=== PATIENT | female | born 1995 | race American Indian/Alaskan Native ===

== ENCOUNTER 2017-09-29 10:27 | Emergency (ER) | payer MEDICAID ==
--- NOTE | 2017-09-29 13:01 | Emergency Department Report ---
ED Abdominal Pain HPI - General Chief Complaint: Abdominal Pain Stated Complaint: PREG W/BACK PAIN Time Seen by Provider: 09/29/17 12:23 Source: EMS Mode of arrival: Stretcher Limitations: No Limitations - History of Present Illness Initial Comments: Patient here from [place] patient is on 1013 from [place] for schizophrenia, family states she is about 20 weeks with lower abdominal pain patient is refusing to answer questions. Awake alert responsive but uncooperative with exam and history, no fever, no n/v, no vag bleed or d/c per family, no fever no back pain, no cp no sob Severity scale (0 -10): 4 - Related Data Allergies Allergy/AdvReac Type Severity Reaction Status Date / Time risperidone [From Risperdal] AdvReac Itching Verified 09/29/17 12:42 ED Review of Systems ROS: Stated complaint: PREG W/BACK PAIN Other details as noted in HPI Comment: uncooperative/ flat afftect/psychosis ED Past Medical Hx - Past Medical History Previous Medical History?: Yes Hx Psychiatric Treatment: Yes ED Physical Exam - General Limitations: No Limitations General appearance: alert, in no apparent distress - Head Head exam: Present: atraumatic, normocephalic - Eye Eye exam: Present: PERRL, EOMI - ENT ENT exam: Present: normal exam - Neck Neck exam: Present: normal inspection. Absent: tenderness, meningismus - Respiratory Respiratory exam: Present: normal lung sounds bilaterally. Absent: respiratory distress, wheezes, rales, rhonchi, stridor, chest wall tenderness, accessory muscle use, decreased breath sounds, prolonged expiratory - Cardiovascular Cardiovascular Exam: Present: regular rate, normal rhythm, normal heart sounds - GI/Abdominal GI/Abdominal exam: Present: soft. Absent: distended, tenderness, guarding, rebound, rigid, hyperactive bowel sounds, mass, pulsatile mass - External exam: Present: normal external exam, other (yellow vag d/c on underewear, refuses pelvic exam) - Back Exam Back exam: Present: normal inspection. Absent: tenderness, CVA tenderness (R), CVA tenderness (L), muscle spasm, paraspinal tenderness, vertebral tenderness - Neurological Exam Neurological exam: Present: alert, CN II-XII intact. Absent: motor sensory deficit - Psychiatric Psychiatric exam: Present: flat affect - Skin Skin exam: Present: warm. Absent: cyanosis, diaphoretic, erythema, urticaria, vesicles, petechiae ED Course Vital Signs 09/29/17 09/29/17 09/29/17 11:50 11:54 12:23 Temperature 98.2 F Pulse Rate 112 H Respiratory 18 18 18 Rate Blood Pressure 107/71 [Left] O2 Sat by Pulse 100 100 100 Oximetry 09/29/17 18:12 Temperature 98 F Pulse Rate 93 H Respiratory 16 Rate Blood Pressure 133/73 [Left] O2 Sat by Pulse 100 Oximetry - Reevaluation(s) Reevaluation #1: 09/29/17 19:14 Patient is now admitting to having a boyfriend states sexually active with one partner [place]'s nurse states patient has not had any care they took once to [facility] where they diagnosed she has not since followed up, unknown lnmp, here w/ lower abd pain, about 20 wks after one time hcg + at [place], no care, on 1013 for schizophrenia from [facility] 09/29/17 19:47 ED Medical Decision Making - Lab Data Result diagrams: 09/29/17 12:40 09/29/17 12:40 - Medical Decision Making u/s shows 19 wk ega , nl iup, breech presentaiotn, no other comments per rad, pt unable to produce u/a x 2 and cath specimen no urine in bladder, +mild yellowish vag d/c ,case d/w dr valencia of ob to arrange care who states send for outpt f/u appt at their practice, advises no need for pelvic now if now acute abd and no vag bleed, pt was uncooperative for pelvic and may need sedated exam under anesthesia for more formal exam for pnc per ob, will treat for trich at this time given nature of d/c and odor since frothy d/c and clinically worrisome for trich in preg pt. will need fornamal pelvic and labs per ob in [id number], [facility] will be made aware to schedule appt, to have pt return if fever worse sx, new or alarming sx or worse pain. Critical care attestation.: If time is entered above; I have spent that time in minutes in the direct care of this critically ill patient, excluding procedure time. ED Disposition Clinical Impression: Normal IUP (intrauterine ) on ultrasound, Hx of schizophrenia , Abdominal pain Disposition: [id number] PSY HOSP/PSY UNIT Is pt being admited?: No Condition: Stable Instructions: Abdominal Pain (ED) Referrals: PRIMARY CARE, [Primary Care Provider] - 3-5 Days Time of Disposition: 19:53
[2017-09-29 13:27] LABS: Basophils % (Auto) 0.1 % (0.0-1.8); Eosinophils % (Auto) 0.3 % (0.0-4.3); Hematocrit 35.8 % (30.3-42.9); Hemoglobin 11.8 gm/dl (10.1-14.3); Lymphocytes # (Auto) 1.5 K/mm3 (1.2-5.4); Lymphocytes % (Auto) 13.3 % (13.4-35.0); Mean Corpuscular HGB Conc 33 % (30-34); Mean Corpuscular Hemoglobin 27 pg (28-32); Mean Corpuscular Volume 82 fl (79-97); Monocytes % (Auto) 8.9 % (0.0-7.3); Platelet Count 218 K/mm3 (140-440); Red Blood Count 4.38 M/mm3 (3.65-5.03); Red Cell Distribution Width 13.8 % (13.2-15.2)
[2017-09-29 13:45] LABS: Alanine Aminotransferase 52 units/L (7-56); Albumin 3.7 g/dL (3.9-5); BUN/Creatinine Ratio 16; Blood Urea Nitrogen 8 mg/dL (7-17); Calcium 9.1 mg/dL (8.4-10.2); Hemolysis Index 0
--- NOTE | 2017-09-29 15:37 | Ultrasound Report ---
FINAL REPORT PROCEDURE: US OB > = 14 WEEKS FETUS TECHNIQUE: Real-time transabdominal sonography of the uterus, placenta, amniotic fluid, adnexa, and fetus was performed with image documentation. Detailed anatomic examination was performed. Measurements were obtained to determine age/size. M-mode Doppler was used to document heartbeat. CPT 46512 HISTORY: pain COMPARISON: No prior studies are available for comparison. FINDINGS: There is a single living intrauterine gestation currently visualized in the breech presentation with a heart rate of 148 beats per minute. Subjectively the amount of amniotic fluid appears normal. Placenta is located anterior and is grade 0. No evidence of placenta abruption or placenta previa. Cervix length 4 centimeters. Examination of the anatomy is shows normal appearance four-chamber view of the heart. The posterior fossa, thalamus, cavum septum pellucidum lateral ventricles are unremarkable. Urinary bladder and stomach are visualized. The kidneys are unremarkable. Extremities were visualized but not studied in detail. Cord insertion appear normal. Three-vessel cord confirmed with visualization of 2 arcuate arteries. The spine showed no abnormalities. MEASUREMENTS: BPD: 4.5 centimeter could HC: 19 week 4 day 18.9 centimeter equal 19 week 4 day AC: 14.4 centimeter equal 19 week 5 days FL: 3.0 centimeter equal 19 week 2 days Mean Gestational Age (composite criteria): 19 week 4 days Estimated Weight: 297 grams. Interval growth: No prior studies Estimated date confinement 02/19/2018 plus or minus 1.5 weeks. IMPRESSION: There is a single living intrauterine gestation currently visualized in the breech presentation. The amount of amniotic fluid appears normal. Grade 0 placenta visualized anteriorly without evidence of placenta previa. Average sonographic age by today's exam 19 week 4 days. This places the EDC at 02/19/2018 +/-1.5 weeks. No abnormalities are identified. weight as above.
[2017-09-29] MEDS ORDERED: FLAGYL PO ONE (19:44)
[2017-09-29 23:53] VITALS: BP 108/55
== END 2017-09-30 05:37 ==
LOC: EEVIPCON 10:27 → ED 10:27
DX: O26.892 Other specified pregnancy related conditions, second trimester (principal); R10.9 Unspecified abdominal pain; F20.9 Schizophrenia, unspecified; Z3A.20 20 weeks gestation of pregnancy; Z88.8 Allergy status to other drugs, medicaments and biological substances
CPT/HCPCS: 36415; 76805; 80053; 84702; 84703; 85025; 87210